=== PATIENT | male | born 1945 | race Caucasian/White ===

== ENCOUNTER 2019-03-31 14:14 | Emergency (ER) | payer OTHER, SELFPAY ==
[2019-03-31 14:20] VITALS: BP 139/82; PULSE 59; RESP 20; TEMP 36.4; O2SAT 99
[2019-03-31] MEDS: MORPHINE 4 MG/ML INJ IV ×3 (14:55→19:39)
[2019-03-31] MEDS: ONDANSETRON 4 MG/2 ML INJ IV ×2 (14:55→16:34)
[2019-03-31 15:18] LABS: Prothrombin Time 11.4 SECONDS (10.1-12.7)
[2019-03-31 15:21] LABS: PTT Partial Thromboplastin Tim 28 SECONDS (26.4-36.2)
[2019-03-31 15:23] LABS: Alanine Aminotransferase 34 IU/L (21-72); Albumin 4.5 g/dL (3.5-5.0); Albumin Globulin Ratio 1.2 (1.0-2.8); Alkaline Phosphatase 137 U/L (38-126); Aspartate Aminotransferase 38 IU/L (17-59); BUN Creatinine Ratio 17.8 (6-22); Bilirubin Total 1.1 mg/dL (0.2-1.3); Blood Urea Nitrogen 16 mg/dL (9-20); Calcium 9.3 mg/dL (8.4-10.2); Carbon Dioxide 22 mmol/L (22-32); Chloride 103 mmol/L (98-107); Estimated Glomerular Filt Rate > 60.0 mL/min (>60); Globulin 3.8 g/dL (1.7-4.1); Glucose 108 mg/dL (80-110); HEMOLYSIS 25 (0-50); Lipase 163 U/L (23-300); Potassium 3.9 mmol/L (3.4-5.1); Sodium 139 mmol/L (137-145); Total Protein 8.3 g/dL (6.3-8.2)
[2019-03-31 15:24] LABS: Add Manual Diff / Slide Review NO; Basophils Absolute Auto 100 /uL (0-100); Basophils Percent Auto 0.5 % (0-2); Eosinophils Absolute Auto 0 /uL (0-450); Hematocrit 46.5 % (41-53); Hemoglobin 15.2 g/dL (13.5-17.5); Lymphocytes Absolute Auto 1000 /uL (1100-4500); Mean Corpuscular HGB Conc 32.7 % (30-36); Mean Corpuscular Hemoglobin 31.1 PG (26-34); Mean Corpuscular Volume 95.2 fL (80-100); Monocytes Absolute Auto 500 /uL (0-900); Monocytes Percent Auto 4.1 % (3-14); Neutrophils Absolute Auto 9500 /uL (1500-7000); Neutrophils Percent Auto 86.4 % (50-75); Platelet Count 192 X10^3/uL (150-400); Red Blood Cell Count 4.89 X10^6/uL (4.5-5.9); Red Cell Distribution Width 14.3 % (11.6-14.8); White Blood Cell Count 11.1 X10^3/uL (4.5-11.0)
[2019-03-31 15:29] LABS: Lactate (Lactic Acid) 2.3 mmol/L (0.7-2.1)
--- NOTE | 2019-03-31 16:20 | DI.US.S_ITS ---
PROCEDURE: US RENAL COMPLETE INDICATIONS: RLQ PAIN, HEMATURIA TECHNIQUE: Real-time scanning was performed of the kidneys and bladder, with image documentation. COMPARISON: None. FINDINGS: Kidneys: Kidneys are normal in size. Right kidney measures 10.7 cm long; left kidney measures 11.7 cm long. Right renal cortical thickness is 1.7 cm; left renal cortical thickness is 1.4 cm. no hydronephrosis. Scattered parenchymal cortical calcifications in the right kidney. No hydronephrosis. Cortical and corticomedullary cysts seen in the left kidney, the largest measuring 3.2 cm containing fine septation. Question of mildly echogenic mass measuring 3.7 x 3.3 x 3.2 cm arising from the upper pole of the left kidney versus left adrenal gland. Bladder: Pre-void bladder volume is 118 mL. Post-void residual is 9 mL. Pre-void images demonstrate no intraluminal masses or stones. On pre-void images, bilateral ureteral jets are noted with color Doppler interrogation. (Of note, ureteral jets may not be detectable in up to 25% of cases due to insufficient differences in specific gravity between ureteral and bladder urine). Miscellaneous: No free pelvic fluid. Visible portion of the prostate gland is within normal limits. No fluid or mass in the right lower quadrant. IMPRESSION: 1. Questionable mildly hyperechoic left upper pole kidney versus left adrenal mass. Renal protocol CT or MRI is recommended. 2. Nonobstructing parenchymal calcifications in the right kidney. 3. Left renal cysts, one minimally complex. 4. Small postvoid residual in the urinary bladder. 5. Etiology of right lower quadrant pain is not identified. Dictated by: Meri Renee M.D. on 03/31/2019 at 18:59 Approved by: Meri Renee M.D. on 03/31/2019 at 19:02
[2019-03-31 16:54] LABS: Bacteria Urine Occasional (0-1); Culture Indicated Urine Specimen Cultured; Mucus Urine 1+ (Negative); RBC Urine 1-5/HPF (0-5/HPF); Squamous Epithelial Cell Urine 0-1 /HPF (0-5/HPF); WBC Urine 1-5/HPF (0-5/HPF)
[2019-03-31 17:12] LABS: Reflexed Lactate in 2 Hours Y
--- NOTE | 2019-03-31 19:31 | DI.CT.S_ITS ---
PROCEDURE: CT ABDOMEN PELVIS WO CON INDICATIONS: rlq pain, hematuria TECHNIQUE: Noncontrast 5 mm thick sections acquired from the diaphragms to the symphysis. 5 mm coronal and sagittal reformats were then performed. For radiation dose reduction, the following was used: automated exposure control, adjustment of mA and/or kV according to patient size. COMPARISON: None. FINDINGS: Image quality: Excellent. ABDOMEN: Lung bases: Lung bases demonstrate bilateral posterior atelectatic changes.. Heart size is normal. Solid organs: Liver is normal in size. Gallbladder is normal. Pancreas is normal in contours. Spleen is normal in size. No adrenal nodules. Nonobstructing 6 mm calcification in the lower pole of the right kidney collecting system. No other right intrarenal calculi. No hydronephrosis in either kidney. There are bilateral cortical cysts, subcentimeter anteriorly in the right upper pole, and it least 4 cortical cysts in the left kidney. The largest measures about 3.3 cm and the left intrapolar region. There is a cyst arising from the anterior left upper pole measuring about 1.9 cm. No definite cortical solid masses, although this was not well assessed without the use of IV contrast. The echogenic structure seen previously by ultrasound may have been inadvertently imaged pancreatic tail. Peritoneum and bowel: Unenhanced bowel loops demonstrate normal wall thickness and caliber. No free fluid or air. The appendix is well-seen and appears normal. Nodes and vessels: No retroperitoneal or mesenteric adenopathy by size criteria. Aorta and inferior vena cava are normal in caliber. Moderate distal abdominal aortic calcification. Miscellaneous: No ventral hernias. PELVIS: Genitourinary: Bladder wall is minimally thickened diffusely. No bladder calculi. Mild prostatomegaly. Miscellaneous: Small fat-containing indirect left inguinal hernia. Bones: No suspicious bony lesions. No vertebral body compression fractures. IMPRESSION: 1. Nonobstructing right lower pole intrarenal calcification measuring 6 mm. 2. Multiple left renal cysts. No definite solid renal mass. Imaging finding ultrasound was likely adjacent pancreatic tail. Confirmation could be completed with contrast enhanced renal protocol MRI. 3. Normal appendix. Etiology of right lower quadrant pain is not evident on this study. 4. Mild urinary bladder wall thickening may be due to under distention versus cystitis. Correlate with urinalysis findings. 5. Small fat-containing left inguinal hernia. Dictated by: Meri Renee M.D. on 03/31/2019 at 21:11 Approved by: Meri Renee M.D. on 03/31/2019 at 21:20
[2019-03-31 20:08] LABS: Lactate (Lactic Acid) 1.1 mmol/L (0.7-2.1)
[2019-03-31 21:10] VITALS: BP 168/78; PULSE 58; O2SAT 97
--- NOTE | 2019-03-31 21:49 | DI.US.S_ITS ---
PROCEDURE: US SCROTUM INDICATIONS: RIGHT TESTICULAR PAIN TECHNIQUE: Real-time scanning was performed of the scrotum and testicles, with image documentation. Color and pulse Doppler interrogation was performed of both testicles. COMPARISON: None. FINDINGS: Right: Testicle is normal in size at 4.6 x 2.4 x 3.2 cm, and homogenous in echotexture. Epididymis is normal in overall size and morphology. No hydrocele or varicoceles. Overlying scrotal skin is normal in thickness. Left: Testicle is normal in size at 5.1 x 2.6 x 2.5 cm, and homogeneous in echotexture. Epididymis is normal in overall size and morphology. No hydrocele or varicoceles. Overlying scrotal skin is normal in thickness. Doppler: Color and pulse Doppler demonstrate normal and symmetric arterial flow in both testicles. IMPRESSION: No source for right testicular pain identified. Note: These findings are concordant with the preliminary interpretation. Dictated by: Damon MARTIN Interpreted: Kunal Meyer MD on 04/01/2019 at 8:28 Approved by: uKnal Meyer M.D. on 04/01/2019 at 11:06
[2019-03-31] MEDS: KETOROLAC 60 MG/2 ML VIAL 30 MG IV (22:00)
--- NOTE | 2019-03-31 22:29 | ED.ABDPAIN ---
HPI - Abdominal Pain <KENDRICK Akhtar - Last Filed: 03/31/19 22:47> General Chief Complaint: Abdominal Pain Stated Complaint: Groin Pain Time Seen by Provider: 03/31/19 14:30 Source: patient and family Mode of arrival: ambulatory Limitations: no limitations History of Present Illness HPI narrative: The patient is a 73-year-old male nonsmoker with history of cardiac disease who presents with a chief complaint of right groin pain described as a inguinal pain radiating down to the right testicle. This started immediately today when he was lifting up something heavy. He states the pain was so bad that he vomited. He denies any chest pain, shortness of breath trauma or injury. he denies any dysuria urgency or frequency. he denies any abdominal pain. denies any previous abdominal surgeries. Related Data Home Medications Medication Instructions Recorded Confirmed alfuzosin 10 mg PO QPM 03/31/19 03/31/19 aspirin 81 mg PO DAILY 03/31/19 03/31/19 atenolol 25 mg PO DAILY 03/31/19 03/31/19 atorvastatin 80 mg PO BEDTIME 03/31/19 03/31/19 cholecalciferol (vitamin D3) 1,000 unit PO DAILY 03/31/19 03/31/19 [Vitamin D3] clopidogrel 75 mg PO DAILY 03/31/19 03/31/19 isosorbide mononitrate 60 mg PO QAM 03/31/19 03/31/19 nitroglycerin [Nitrostat] 0.4 mg SUBLINGUAL Q5-15M PRN 03/31/19 03/31/19 Previous Rx's Medication Instructions Recorded ketorolac 10 mg PO Q6H PRN 2 Days #6 tab 03/31/19 Allergies Allergy/AdvReac Type Severity Reaction Status Date / Time No Known Drug Allergies Allergy Verified 03/31/19 14:26 Review of Systems <KENDRICK Akhtar - Last Filed: 03/31/19 22:47> Review of Systems GENERAL: Denies chills, fatigue, malaise, fever, sweats. HEENT: Denies sinus pain, ear pain, sore throat, difficulty swallowing, dizziness. RESPIRATORY: Denies dyspnea, cough, wheezing, hemoptysis, sputum. CARDIOVASCULAR: Denies chest pain, palpitations, orthopnea, edema, GASTROINTESTINAL: See HPI : See HPI MUSCULOSKELETAL: denies weakness, joint pain, or bony pain SKIN: Denies rash, skin lesions, or other NEUROLOGIC: Denies weakness, headache, numbness, change in speech, confusion, seizures, incoordination. PSYCHIATRIC: No concerning psychosocial issues. 12 point review of systems is negative except for those stated above Exam <Faviola IvyZENAIDA-BC - Last Filed: 03/31/19 22:47> Narrative Exam Narrative: GENERAL: This is a well-nourished, well-developed patient, no obvious distress HEAD: Atraumatic. Normocephalic. No temporal or scalp tenderness. EYES: Pupils equal round and reactive. Extraocular motions intact. No scleral icterus. No injection or drainage. ENT: Nose without bleeding, purulent drainage or septal hematoma. Throat without erythema, tonsillar hypertrophy or exudate. Uvula midline. Airway patent. NECK: Trachea midline. No JVD or lymphadenopathy. Supple, nontender, no meningeal signs. CARDIOVASCULAR: Regular rate and rhythm without murmurs, gallops, or rubs. RESPIRATORY: Clear to auscultation. Breath sounds equal bilaterally. No wheezes, rales, or rhonchi. No cough. No increased respiratory effort. GASTROINTESTINAL: Abdomen soft, , nondistended. No hepato-splenomegaly, or palpable masses. No guarding. active bowel sounds all 4 quadrants. Pain to palpation right lower quadrant. EXTREMITIES: No clubbing, cyanosis, or edema. No joint tenderness, effusion, or edema noted. BACK: Nontender without deformity or crepitance. No flank tenderness. NEURO: AOx3. SKIN: No rash or erythema. : exam performed with Roselyn joy at bedside. Cremasteric reflex intact bilaterally. No obvious swelling. No rash or drainage noted. Initial Vital Signs Initial Vital Signs: Vital Signs Temperature 97.5 F L 03/31/19 14:20 Pulse Rate 59 L 03/31/19 14:20 Respiratory Rate 20 03/31/19 14:20 Blood Pressure 139/82 03/31/19 14:20 Pulse Oximetry 99 03/31/19 14:20 <Casey Poole DO - Last Filed: 03/31/19 22:56> Initial Vital Signs Initial Vital Signs: Vital Signs Temperature 97.5 F L 03/31/19 14:20 Pulse Rate 59 L 04/30/19 14:20 Respiratory Rate 20 03/31/19 14:20 Blood Pressure 139/82 03/31/19 14:20 Pulse Oximetry 99 03/31/19 14:20 Course <ZENAIDA Akhtar-BC - Last Filed: 03/31/19 22:47> Orders Ordered: ED Orders 03/31/19 14:17 EKG-12 Lead Stat 03/31/19 14:30 Comprehensive Metabolic Panel Stat Lipase Stat Partial Thromboplastin Time Stat Prothrombin Time INR Stat 03/31/19 15:05 Complete Blood Count AUTO DIFF Stat Lactate (Lactic Acid) Stat 03/31/19 15:15 Urine Culture Stat Urine Microscopic Stat 03/31/19 16:20 US renal complete Stat 03/31/19 19:31 CT abdomen pelvis wo con Stat 03/31/19 19:50 Lactate (Lactic Acid) Stat 03/31/19 21:49 US scrotum Stat Sodium Chloride (Normal Saline 0.9%) 1,000 mls @ 1,000 mls/hr IV BOLUS PRN PRN Reason: Fluid replacement Discontinued Medications Sodium Chloride (Normal Saline 0.9%) 1,000 mls @ 1,000 mls/hr IV BOLUS ONE Stop: 03/31/19 21:43 Last Admin: 03/31/19 22:55 Dose: Not Given Ketorolac Tromethamine (Toradol) 30 mg IV NOW ONE Stop: 03/31/19 21:51 Last Admin: 03/31/19 22:00 Dose: 30 mg Morphine Sulfate (Morphine) 4 mg IV NOW ONE Stop: 03/31/19 14:42 Last Admin: 03/31/19 14:55 Dose: 4 mg Morphine Sulfate (Morphine) 4 mg IV NOW ONE Stop: 03/31/19 16:01 Last Admin: 03/31/19 16:33 Dose: 4 mg Morphine Sulfate (Morphine) 4 mg IV NOW ONE Stop: 03/31/19 19:40 Last Admin: 03/31/19 19:39 Dose: 4 mg Morphine Sulfate (Morphine Sulfate) 4 mg IV NOW ONE Stop: 03/31/19 19:44 Last Admin: 03/31/19 19:52 Dose: Not Given Ondansetron HCl (Zofran) 4 mg IV NOW ONE Stop: 03/31/19 14:18 Last Admin: 03/31/19 14:55 Dose: 4 mg Ondansetron HCl (Zofran) 4 mg IV NOW ONE Stop: 03/31/19 14:42 Last Admin: 03/31/19 16:34 Dose: 4 mg Vital Signs - 8 hr 03/31/19 21:10 Pulse Rate 58 L Blood Pressure [Left Arm] 168/78 H Pulse Oximetry 97 <Casey Pooel DO - Last Filed: 03/31/19 22:56> Orders Ordered: ED Orders 03/31/19 14:17 EKG-12 Lead Stat 03/31/19 14:30 Comprehensive Metabolic Panel Stat Lipase Stat Partial Thromboplastin Time Stat Prothrombin Time INR Stat 03/31/19 15:05 Complete Blood Count AUTO DIFF Stat Lactate (Lactic Acid) Stat 03/31/19 15:15 Urine Culture Stat Urine Microscopic Stat 03/31/19 16:20 US renal complete Stat 03/31/19 19:31 CT abdomen pelvis wo con Stat 03/31/19 19:50 Lactate (Lactic Acid) Stat 03/31/19 21:49 US scrotum Stat Sodium Chloride (Normal Saline 0.9%) 1,000 mls @ 1,000 mls/hr IV BOLUS PRN PRN Reason: Fluid replacement Discontinued Medications Sodium Chloride (Normal Saline 0.9%) 1,000 mls @ 1,000 mls/hr IV BOLUS ONE Stop: 03/31/19 21:43 Last Admin: 03/31/19 22:55 Dose: Not Given Ketorolac Tromethamine (Toradol) 30 mg IV NOW ONE Stop: 03/31/19 21:51 Last Admin: 03/31/19 22:00 Dose: 30 mg Morphine Sulfate (Morphine) 4 mg IV NOW ONE Stop: 03/31/19 14:42 Last Admin: 03/31/19 14:55 Dose: 4 mg Morphine Sulfate (Morphine) 4 mg IV NOW ONE Stop: 03/31/19 16:01 Last Admin: 03/31/19 16:33 Dose: 4 mg Morphine Sulfate (Morphine) 4 mg IV NOW ONE Stop: 03/31/19 19:40 Last Admin: 03/31/19 19:39 Dose: 4 mg Morphine Sulfate (Morphine Sulfate) 4 mg IV NOW ONE Stop: 03/31/19 19:44 Last Admin: 03/31/19 19:52 Dose: Not Given Ondansetron HCl (Zofran) 4 mg IV NOW ONE Stop: 03/31/19 14:18 Last Admin: 03/31/19 14:55 Dose: 4 mg Ondansetron HCl (Zofran) 4 mg IV NOW ONE Stop: 03/31/19 14:42 Last Admin: 03/31/19 16:34 Dose: 4 mg Vital Signs - 8 hr 03/31/19 21:10 Pulse Rate 58 L Blood Pressure [Left Arm] 168/78 H Pulse Oximetry 97 MDM - Abdominal Pain <ZENAIDA Akhtar- - Last Filed: 03/31/19 22:47> Lab Data Result diagrams: 03/31/19 15:05 03/31/19 14:30 Lab Results 03/31/19 03/31/19 03/31/19 Range/Units 14:30 14:30 15:05 WBC 11.1 H (4.5-11.0) X10^3/uL RBC 4.89 (4.5-5.9) X10^6/uL Hgb 15.2 (13.5-17.5) g/dL Hct 46.5 (41-53) % MCV 95.2 (80-100) fL MCH 31.1 (26-34) PG MCHC 32.7 (30-36) % RDW 14.3 (11.6-14.8) % Plt Count 192 (150-400) X10^3/uL Neut % (Auto) 86.4 H (50-75) % Lymph % (Auto) 9.0 L (25-40) % Rogers % (Auto) 4.1 (3-14) % Eos % (Auto) 0.0 L (2-4) % Baso % (Auto) 0.5 (0-2) % Neut # (Auto) 9500 H (1433-6743) /uL Lymph # (Auto) 1000 L (9048-1719) /uL Rogers # (Auto) 500 (0-900) /uL Eos # (Auto) 0 (0-450) /uL Baso # (Auto) 100 (0-100) /uL PT 11.4 (10.1-12.7) SECONDS INR 1.0 (0.9-1.3) APTT 28 (26.4-36.2) SECONDS Sodium 139 (137-145) mmol/L Potassium 3.9 (3.4-5.1) mmol/L Chloride 103 (98-107) mmol/L Carbon Dioxide 22 (22-32) mmol/L BUN 16 (9-20) mg/dL Creatinine 0.90 (0.66-1.25) mg/dL Estimated GFR > 60.0 (>60) mL/min BUN/Creatinine Ratio 17.8 (6-22) Glucose 108 (80-110) mg/dL Lactate (0.7-2.1) mmol/L Calcium 9.3 (8.4-10.2) mg/dL Total Bilirubin 1.1 (0.2-1.3) mg/dL AST 38 (17-59) IU/L ALT 34 (21-72) IU/L Alkaline Phosphatase 137 H (38-126) U/L Total Protein 8.3 H (6.3-8.2) g/dL Albumin 4.5 (3.5-5.0) g/dL Globulin 3.8 (1.7-4.1) g/dL Albumin/Globulin Ratio 1.2 (1.0-2.8) Lipase 163 (23-300) U/L Urine RBC (0-5/HPF) Urine WBC (0-5/HPF) Ur Squamous Epith Cells (0-5/HPF) Urine Bacteria (None) Urine Mucus (Negative) Ur Culture Indicated? 03/31/19 03/31/19 03/31/19 Range/Units 15:05 15:15 17:53 WBC (4.5-11.0) X10^3/uL RBC (4.5-5.9) X10^6/uL Hgb (13.5-17.5) g/dL Hct (41-53) % MCV (80-100) fL MCH (26-34) PG MCHC (30-36) % RDW (11.6-14.8) % Plt Count (150-400) X10^3/uL Neut % (Auto) (50-75) % Lymph % (Auto) (25-40) % Rogers % (Auto) (3-14) % Eos % (Auto) (2-4) % Baso % (Auto) (0-2) % Neut # (Auto) (8868-4706) /uL Lymph # (Auto) (7505-9844) /uL Rogers # (Auto) (0-900) /uL Eos # (Auto) (0-450) /uL Baso # (Auto) (0-100) /uL PT (10.1-12.7) SECONDS INR (0.9-1.3) APTT (26.4-36.2) SECONDS Sodium (137-145) mmol/L Potassium (3.4-5.1) mmol/L Chloride (98-107) mmol/L Carbon Dioxide (22-32) mmol/L BUN (9-20) mg/dL Creatinine (0.66-1.25) mg/dL Estimated GFR (>60) mL/min BUN/Creatinine Ratio (6-22) Glucose (80-110) mg/dL Lactate 2.3 H 1.0 (0.7-2.1) mmol/L Calcium (8.4-10.2) mg/dL Total Bilirubin (0.2-1.3) mg/dL AST (17-59) IU/L ALT (21-72) IU/L Alkaline Phosphatase (38-126) U/L Total Protein (6.3-8.2) g/dL Albumin (3.5-5.0) g/dL Globulin (1.7-4.1) g/dL Albumin/Globulin Ratio (1.0-2.8) Lipase (23-300) U/L Urine RBC 1-5/hpf (0-5/HPF) Urine WBC 1-5/hpf (0-5/HPF) Ur Squamous Epith Cells 0-1 /hpf (0-5/HPF) Urine Bacteria Occasional (0-1) (None) Urine Mucus 1+ H (Negative) Ur Culture Indicated? Specimen cultured 03/31/19 Range/Units 19:50 WBC (4.5-11.0) X10^3/uL RBC (4.5-5.9) X10^6/uL Hgb (13.5-17.5) g/dL Hct (41-53) % MCV (80-100) fL MCH (26-34) PG MCHC (30-36) % RDW (11.6-14.8) % Plt Count (150-400) X10^3/uL Neut % (Auto) (50-75) % Lymph % (Auto) (25-40) % Rogers % (Auto) (3-14) % Eos % (Auto) (2-4) % Baso % (Auto) (0-2) % Neut # (Auto) (5423-7031) /uL Lymph # (Auto) (8342-6280) /uL Rogers # (Auto) (0-900) /uL Eos # (Auto) (0-450) /uL Baso # (Auto) (0-100) /uL PT (10.1-12.7) SECONDS INR (0.9-1.3) APTT (26.4-36.2) SECONDS Sodium (137-145) mmol/L Potassium (3.4-5.1) mmol/L Chloride (98-107) mmol/L Carbon Dioxide (22-32) mmol/L BUN (9-20) mg/dL Creatinine (0.66-1.25) mg/dL Estimated GFR (>60) mL/min BUN/Creatinine Ratio (6-22) Glucose (80-110) mg/dL Lactate 1.1 (0.7-2.1) mmol/L Calcium (8.4-10.2) mg/dL Total Bilirubin (0.2-1.3) mg/dL AST (17-59) IU/L ALT (21-72) IU/L Alkaline Phosphatase (38-126) U/L Total Protein (6.3-8.2) g/dL Albumin (3.5-5.0) g/dL Globulin (1.7-4.1) g/dL Albumin/Globulin Ratio (1.0-2.8) Lipase (23-300) U/L Urine RBC (0-5/HPF) Urine WBC (0-5/HPF) Ur Squamous Epith Cells (0-5/HPF) Urine Bacteria (None) Urine Mucus (Negative) Ur Culture Indicated? Point of care testing: Urine Dip Bedside Urine Glucose Negative Bedside Urine Bilirubin - Negative Bedside Urine Ketone ++ 40 Urine Specific [place] 1.015 Bedside Urine Occult Blood +/- Bedside Urine pH 7.5 Bedside Urine Protein +/- 15 Bedside Urine Urobilinogen +/- 1mg Bedside Urine Nitrite - Negative Bedside Urine Leukocytes +/- 15 Esterase Imaging Data Renal ultrasound: Radiologist's impression: [address] [address] Ultrasound Report Signed Patient: Miller Yip#: [id number] : 7Acct:[id number] Age/Sex: 73 / MDate of Service: 03/31/19 Loc: ED Accession Number: [id number] Procedure: US renal complete Ordering Provider: Faviola Ivy PROCEDURE: US RENAL COMPLETE INDICATIONS: RLQ PAIN, HEMATURIA TECHNIQUE: Real-time scanning was performed of the kidneys and bladder, with image documentation. COMPARISON: None. FINDINGS: Kidneys: Kidneys are normal in size. Right kidney measures 10.7 cm long; left kidney measures 11.7 cm long. Right renal cortical thickness is 1.7 cm; left renal cortical thickness is 1.4 cm. no hydronephrosis. Scattered parenchymal cortical calcifications in the right kidney. No hydronephrosis. Cortical and corticomedullary cysts seen in the left kidney, the largest measuring 3.2 cm containing fine septation. Question of mildly echogenic mass measuring 3.7 x 3.3 x 3.2 cm arising from the upper pole of the left kidney versus left adrenal gland. Bladder: Pre-void bladder volume is 118 mL. Post-void residual is 9 mL. Pre-void images demonstrate no intraluminal masses or stones. On pre-void images, bilateral ureteral jets are noted with color Doppler interrogation. (Of note, ureteral jets may not be detectable in up to 25% of cases due to insufficient differences in specific gravity between ureteral and bladder urine). Miscellaneous: No free pelvic fluid. Visible portion of the prostate gland is within normal limits. No fluid or mass in the right lower quadrant. IMPRESSION: 1. Questionable mildly hyperechoic left upper pole kidney versus left adrenal mass. Renal protocol CT or MRI is recommended. 2. Nonobstructing parenchymal calcifications in the right kidney. 3. Left renal cysts, one minimally complex. 4. Small postvoid residual in the urinary bladder. 5. Etiology of right lower quadrant pain is not identified. Dictated by: Meri Renee M.D. on 03/31/2019 at 18:59 Approved by: Meri Renee M.D. on 03/31/2019 at 19:02 CT scan - abdomen: Radiologist's impression: Miller Yip 73 M [address] [address] [address] Scan Report Signed Patient: Miller YipMR#: [id number] : 7Acct:[id number] Age/Sex: 73 / MDate of Service: 03/31/19 Loc: ED Accession Number: [id number] Procedure: CT abdomen pelvis wo con Ordering Provider: Faviola Ivy- PROCEDURE: CT ABDOMEN PELVIS WO CON INDICATIONS: rlq pain, hematuria TECHNIQUE: Noncontrast 5 mm thick sections acquired from the diaphragms to the symphysis. 5 mm coronal and sagittal reformats were then performed. For radiation dose reduction, the following was used: automated exposure control, adjustment of mA and/or kV according to patient size. COMPARISON: None. FINDINGS: Image quality: Excellent. ABDOMEN: Lung bases: Lung bases demonstrate bilateral posterior atelectatic changes.. Heart size is normal. Solid organs: Liver is normal in size. Gallbladder is normal. Pancreas is normal in contours. Spleen is normal in size. No adrenal nodules. Nonobstructing 6 mm calcification in the lower pole of the right kidney collecting system. No other right intrarenal calculi. No hydronephrosis in either kidney. There are bilateral cortical cysts, subcentimeter anteriorly in the right upper pole, and it least 4 cortical cysts in the left kidney. The largest measures about 3.3 cm and the left intrapolar region. There is a cyst arising from the anterior left upper pole measuring about 1.9 cm. No definite cortical solid masses, although this was not well assessed without the use of IV contrast. The echogenic structure seen previously by ultrasound may have been inadvertently imaged pancreatic tail. Peritoneum and bowel: Unenhanced bowel loops demonstrate normal wall thickness and caliber. No free fluid or air. The appendix is well-seen and appears normal. Nodes and vessels: No retroperitoneal or mesenteric adenopathy by size criteria. Aorta and inferior vena cava are normal in caliber. Moderate distal abdominal aortic calcification. Miscellaneous: No ventral hernias. PELVIS: Genitourinary: Bladder wall is minimally thickened diffusely. No bladder calculi. Mild prostatomegaly. Miscellaneous: Small fat-containing indirect left inguinal hernia. Bones: No suspicious bony lesions. No vertebral body compression fractures. IMPRESSION: 1. Nonobstructing right lower pole intrarenal calcification measuring 6 mm. 2. Multiple left renal cysts. No definite solid renal mass. Imaging finding ultrasound was likely adjacent pancreatic tail. Confirmation could be completed with contrast enhanced renal protocol MRI. 3. Normal appendix. Etiology of right lower quadrant pain is not evident on this study. 4. Mild urinary bladder wall thickening may be due to under distention versus cystitis. Correlate with urinalysis findings. 5. Small fat-containing left inguinal hernia. Dictated by: Meri Renee M.D. on 03/31/2019 at 21:11 Approved by: Meri Renee M.D. on 03/31/2019 at 21:20 Scrotal ultrasound : Radiologist's impression: Night read: No acute disease MDM Narrative Medical decision making narrative: The patient is a 73-year-old male who presents with chief complaint right lower quadrant pain. although he initially did night any allergies, when he was being prepped for CT he remember that he had a cardiac arrest immediately after contrast dye. Thus I did not obtain a CT with contrast. He had no acute etiology renal ultrasound. I did a CT KUB given the possibility of a renal mass on ultrasound, but this was found to be pancreatic tail on CT. He does have nonobstructing intrarenal calcification that is 6 mm on the right side. I did discuss that this should be asymptomatic at this point time. He has a normal appendix. He does not have any hernias on exam it is noted to have a small fat containing left inguinal hernia. He was found to have some renal cysts, and I spoke at length with the patient and his that he needs to follow up with his primary care provider. Preliminary results from a testicular ultrasound are normal. I discussed at length that he needs to follow up with primary care provider. Discussed coming back to the emergency department for any acute need such as chest pain shortness of breath, concern of heart attack or stroke. The patient does have slight bacteria on urinalysis, but no dysuria urgency or frequency. thus I spoke with the patient his about holding on antibiotics until his urine cultures resulted. they are in accordance. <Casey Poole, - Last Filed: 03/31/19 22:56> Lab Data Lab Results 03/31/19 03/31/19 03/31/19 Range/Units 14:30 14:30 15:05 WBC 11.1 H (4.5-11.0) X10^3/uL RBC 4.89 (4.5-5.9) X10^6/uL Hgb 15.2 (13.5-17.5) g/dL Hct 46.5 (41-53) % MCV 95.2 (80-100) fL MCH 31.1 (26-34) PG MCHC 32.7 (30-36) % RDW 14.3 (11.6-14.8) % Plt Count 192 (150-400) X10^3/uL Neut % (Auto) 86.4 H (50-75) % Lymph % (Auto) 9.0 L (25-40) % Rogers % (Auto) 4.1 (3-14) % Eos % (Auto) 0.0 L (2-4) % Baso % (Auto) 0.5 (0-2) % Neut # (Auto) 9500 H (0984-6271) /uL Lymph # (Auto) 1000 L (1338-6903) /uL Rogers # (Auto) 500 (0-900) /uL Eos # (Auto) 0 (0-450) /uL Baso # (Auto) 100 (0-100) /uL PT 11.4 (10.1-12.7) SECONDS INR 1.0 (0.9-1.3) APTT 28 (26.4-36.2) SECONDS Sodium 139 (137-145) mmol/L Potassium 3.9 (3.4-5.1) mmol/L Chloride 103 (98-107) mmol/L Carbon Dioxide 22 (22-32) mmol/L BUN 16 (9-20) mg/dL Creatinine 0.90 (0.66-1.25) mg/dL Estimated GFR > 60.0 (>60) mL/min BUN/Creatinine Ratio 17.8 (6-22) Glucose 108 (80-110) mg/dL Lactate (0.7-2.1) mmol/L Calcium 9.3 (8.4-10.2) mg/dL Total Bilirubin 1.1 (0.2-1.3) mg/dL AST 38 (17-59) IU/L ALT 34 (21-72) IU/L Alkaline Phosphatase 137 H (38-126) U/L Total Protein 8.3 H (6.3-8.2) g/dL Albumin 4.5 (3.5-5.0) g/dL Globulin 3.8 (1.7-4.1) g/dL Albumin/Globulin Ratio 1.2 (1.0-2.8) Lipase 163 (23-300) U/L Urine RBC (0-5/HPF) Urine WBC (0-5/HPF) Ur Squamous Epith Cells (0-5/HPF) Urine Bacteria (None) Urine Mucus (Negative) Ur Culture Indicated? 03/31/19 03/31/19 03/31/19 Range/Units 15:05 15:15 17:53 WBC (4.5-11.0) X10^3/uL RBC (4.5-5.9) X10^6/uL Hgb (13.5-17.5) g/dL Hct (41-53) % MCV (80-100) fL MCH (26-34) PG MCHC (30-36) % RDW (11.6-14.8) % Plt Count (150-400) X10^3/uL Neut % (Auto) (50-75) % Lymph % (Auto) (25-40) % Rogers % (Auto) (3-14) % Eos % (Auto) (2-4) % Baso % (Auto) (0-2) % Neut # (Auto) (2634-5022) /uL Lymph # (Auto) (4949-4288) /uL Rogers # (Auto) (0-900) /uL Eos # (Auto) (0-450) /uL Baso # (Auto) (0-100) /uL PT (10.1-12.7) SECONDS INR (0.9-1.3) APTT (26.4-36.2) SECONDS Sodium (137-145) mmol/L Potassium (3.4-5.1) mmol/L Chloride (98-107) mmol/L Carbon Dioxide (22-32) mmol/L BUN (9-20) mg/dL Creatinine (0.66-1.25) mg/dL Estimated GFR (>60) mL/min BUN/Creatinine Ratio (6-22) Glucose (80-110) mg/dL Lactate 2.3 H 1.0 (0.7-2.1) mmol/L Calcium (8.4-10.2) mg/dL Total Bilirubin (0.2-1.3) mg/dL AST (17-59) IU/L ALT (21-72) IU/L Alkaline Phosphatase (38-126) U/L Total Protein (6.3-8.2) g/dL Albumin (3.5-5.0) g/dL Globulin (1.7-4.1) g/dL Albumin/Globulin Ratio (1.0-2.8) Lipase (23-300) U/L Urine RBC 1-5/hpf (0-5/HPF) Urine WBC 1-5/hpf (0-5/HPF) Ur Squamous Epith Cells 0-1 /hpf (0-5/HPF) Urine Bacteria Occasional (0-1) (None) Urine Mucus 1+ H (Negative) Ur Culture Indicated? Specimen cultured 03/31/19 Range/Units 19:50 WBC (4.5-11.0) X10^3/uL RBC (4.5-5.9) X10^6/uL Hgb (13.5-17.5) g/dL Hct (41-53) % MCV (80-100) fL MCH (26-34) PG MCHC (30-36) % RDW (11.6-14.8) % Plt Count (150-400) X10^3/uL Neut % (Auto) (50-75) % Lymph % (Auto) (25-40) % Rogers % (Auto) (3-14) % Eos % (Auto) (2-4) % Baso % (Auto) (0-2) % Neut # (Auto) (4341-7249) /uL Lymph # (Auto) (7031-7072) /uL Rogers # (Auto) (0-900) /uL Eos # (Auto) (0-450) /uL Baso # (Auto) (0-100) /uL PT (10.1-12.7) SECONDS INR (0.9-1.3) APTT (26.4-36.2) SECONDS Sodium (137-145) mmol/L Potassium (3.4-5.1) mmol/L Chloride (98-107) mmol/L Carbon Dioxide (22-32) mmol/L BUN (9-20) mg/dL Creatinine (0.66-1.25) mg/dL Estimated GFR (>60) mL/min BUN/Creatinine Ratio (6-22) Glucose (80-110) mg/dL Lactate 1.1 (0.7-2.1) mmol/L Calcium (8.4-10.2) mg/dL Total Bilirubin (0.2-1.3) mg/dL AST (17-59) IU/L ALT (21-72) IU/L Alkaline Phosphatase (38-126) U/L Total Protein (6.3-8.2) g/dL Albumin (3.5-5.0) g/dL Globulin (1.7-4.1) g/dL Albumin/Globulin Ratio (1.0-2.8) Lipase (23-300) U/L Urine RBC (0-5/HPF) Urine WBC (0-5/HPF) Ur Squamous Epith Cells (0-5/HPF) Urine Bacteria (None) Urine Mucus (Negative) Ur Culture Indicated? Point of care testing: Urine Dip Bedside Urine Glucose Negative Bedside Urine Bilirubin - Negative Bedside Urine Ketone ++ 40 Urine Specific [place] 1.015 Bedside Urine Occult Blood +/- Bedside Urine pH 7.5 Bedside Urine Protein +/- 15 Bedside Urine Urobilinogen +/- 1mg Bedside Urine Nitrite - Negative Bedside Urine Leukocytes +/- 15 Esterase Discharge Plan Departure Patient Disposition: Home Clinical Impression: Right inguinal pain Instructions: DI for Abdominal Pain-Adult, DI for Groin Strain Activity Restrictions/Additional Instructions: Your renal ultrasound abdominal CT and preliminary results of testicular ultrasound do not have any direct cause of your right lower quadrant pain. We are sending off a urine culture to see if your urine grows anything. He will get a phone call this comes back positive. I have given you a prescription of Toradol. Do not combine this with ibuprofen Aleve or any other NSAIDs. Please follow up with primary care provider soon as possible. Please come back to emergency department for any acute concerns such as chest pain or shortness of breath. Prescriptions: New ketorolac 10 mg tablet 10 mg PO Q6H PRN (Reason: pain) 2 Days Qty: 6 RF: 0 No Action atorvastatin 80 mg Tablet 80 mg PO BEDTIME RF: 0 atenolol 25 mg Tablet 25 mg PO DAILY RF: 0 clopidogrel 75 mg Tablet 75 mg PO DAILY RF: 0 aspirin 81 mg Tablet,Delayed Release (Dr/Ec) 81 mg PO DAILY RF: 0 isosorbide mononitrate 60 mg Tablet Extended Release 24 Hr 60 mg PO QAM RF: 0 nitroglycerin [Nitrostat] 0.4 mg Tablet, Sublingual 0.4 mg SUBLINGUAL Q5-15M PRN (Reason: Chest Pain) RF: 0 cholecalciferol (vitamin D3) [Vitamin D3] 1,000 unit Capsule 1,000 unit PO DAILY RF: 0 alfuzosin 10 mg Tablet Extended Release 24 Hr 10 mg PO QPM RF: 0 Referrals: Hector Watts MD [Non-Staff] - <Casey Poole DO - Last Filed: 03/31/19 22:56> Cosign ED Attending Mary Carmenature Attestation: I was available for consultation during this patient's emergency department encounter
--- NOTE | 2019-03-31 22:37 | ED_ITS ---
HPI - Abdominal Pain <KENDRICK Akhtar - Last Filed: 03/31/19 22:47> General Chief Complaint: Abdominal Pain Stated Complaint: Groin Pain Time Seen by Provider: 03/31/19 14:30 Source: patient and family Mode of arrival: ambulatory Limitations: no limitations History of Present Illness HPI narrative: The patient is a 73-year-old male nonsmoker with history of cardiac disease who presents with a chief complaint of right groin pain described as a inguinal pain radiating down to the right testicle. This started immediately today when he was lifting up something heavy. He states the pain was so bad that he vomited. He denies any chest pain, shortness of breath trauma or injury. he denies any dysuria urgency or frequency. he denies any abdominal pain. denies any previous abdominal surgeries. Related Data Home Medications Medication Instructions Recorded Confirmed alfuzosin 10 mg PO QPM 03/31/19 03/31/19 aspirin 81 mg PO DAILY 03/31/19 03/31/19 atenolol 25 mg PO DAILY 03/31/19 03/31/19 atorvastatin 80 mg PO BEDTIME 03/31/19 03/31/19 cholecalciferol (vitamin D3) 1,000 unit PO DAILY 03/31/19 03/31/19 [Vitamin D3] clopidogrel 75 mg PO DAILY 03/31/19 03/31/19 isosorbide mononitrate 60 mg PO QAM 03/31/19 03/31/19 nitroglycerin [Nitrostat] 0.4 mg SUBLINGUAL Q5-15M PRN 03/31/19 03/31/19 Previous Rx's Medication Instructions Recorded ketorolac 10 mg PO Q6H PRN 2 Days #6 tab 03/31/19 Allergies Allergy/AdvReac Type Severity Reaction Status Date / Time No Known Drug Allergies Allergy Verified 03/31/19 14:26 Review of Systems <KENDRICK Akhtar - Last Filed: 03/31/19 22:47> Review of Systems GENERAL: Denies chills, fatigue, malaise, fever, sweats. HEENT: Denies sinus pain, ear pain, sore throat, difficulty swallowing, dizziness. RESPIRATORY: Denies dyspnea, cough, wheezing, hemoptysis, sputum. CARDIOVASCULAR: Denies chest pain, palpitations, orthopnea, edema, GASTROINTESTINAL: See HPI : See HPI MUSCULOSKELETAL: denies weakness, joint pain, or bony pain SKIN: Denies rash, skin lesions, or other NEUROLOGIC: Denies weakness, headache, numbness, change in speech, confusion, seizures, incoordination. PSYCHIATRIC: No concerning psychosocial issues. 12 point review of systems is negative except for those stated above Exam <Faviola IvyZENAIDA-BC - Last Filed: 03/31/19 22:47> Narrative Exam Narrative: GENERAL: This is a well-nourished, well-developed patient, no obvious distress HEAD: Atraumatic. Normocephalic. No temporal or scalp tenderness. EYES: Pupils equal round and reactive. Extraocular motions intact. No scleral icterus. No injection or drainage. ENT: Nose without bleeding, purulent drainage or septal hematoma. Throat without erythema, tonsillar hypertrophy or exudate. Uvula midline. Airway patent. NECK: Trachea midline. No JVD or lymphadenopathy. Supple, nontender, no meningeal signs. CARDIOVASCULAR: Regular rate and rhythm without murmurs, gallops, or rubs. RESPIRATORY: Clear to auscultation. Breath sounds equal bilaterally. No wheezes, rales, or rhonchi. No cough. No increased respiratory effort. GASTROINTESTINAL: Abdomen soft, , nondistended. No hepato-splenomegaly, or palpable masses. No guarding. active bowel sounds all 4 quadrants. Pain to palpation right lower quadrant. EXTREMITIES: No clubbing, cyanosis, or edema. No joint tenderness, effusion, or edema noted. BACK: Nontender without deformity or crepitance. No flank tenderness. NEURO: AOx3. SKIN: No rash or erythema. : exam performed with Roselyn joy at bedside. Cremasteric reflex intact bilaterally. No obvious swelling. No rash or drainage noted. Initial Vital Signs Initial Vital Signs: Vital Signs Temperature 97.5 F L 03/31/19 14:20 Pulse Rate 59 L 03/31/19 14:20 Respiratory Rate 20 03/31/19 14:20 Blood Pressure 139/82 03/31/19 14:20 Pulse Oximetry 99 03/31/19 14:20 <Casey Poole DO - Last Filed: 03/31/19 22:56> Initial Vital Signs Initial Vital Signs: Vital Signs Temperature 97.5 F L 03/31/19 14:20 Pulse Rate 59 L 04/30/19 14:20 Respiratory Rate 20 03/31/19 14:20 Blood Pressure 139/82 03/31/19 14:20 Pulse Oximetry 99 03/31/19 14:20 Course <ZENAIDA Akhtar-BC - Last Filed: 03/31/19 22:47> Orders Ordered: ED Orders 03/31/19 14:17 EKG-12 Lead Stat 03/31/19 14:30 Comprehensive Metabolic Panel Stat Lipase Stat Partial Thromboplastin Time Stat Prothrombin Time INR Stat 03/31/19 15:05 Complete Blood Count AUTO DIFF Stat Lactate (Lactic Acid) Stat 03/31/19 15:15 Urine Culture Stat Urine Microscopic Stat 03/31/19 16:20 US renal complete Stat 03/31/19 19:31 CT abdomen pelvis wo con Stat 03/31/19 19:50 Lactate (Lactic Acid) Stat 03/31/19 21:49 US scrotum Stat Sodium Chloride (Normal Saline 0.9%) 1,000 mls @ 1,000 mls/hr IV BOLUS PRN PRN Reason: Fluid replacement Discontinued Medications Sodium Chloride (Normal Saline 0.9%) 1,000 mls @ 1,000 mls/hr IV BOLUS ONE Stop: 03/31/19 21:43 Last Admin: 03/31/19 22:55 Dose: Not Given Ketorolac Tromethamine (Toradol) 30 mg IV NOW ONE Stop: 03/31/19 21:51 Last Admin: 03/31/19 22:00 Dose: 30 mg Morphine Sulfate (Morphine) 4 mg IV NOW ONE Stop: 03/31/19 14:42 Last Admin: 03/31/19 14:55 Dose: 4 mg Morphine Sulfate (Morphine) 4 mg IV NOW ONE Stop: 03/31/19 16:01 Last Admin: 03/31/19 16:33 Dose: 4 mg Morphine Sulfate (Morphine) 4 mg IV NOW ONE Stop: 03/31/19 19:40 Last Admin: 03/31/19 19:39 Dose: 4 mg Morphine Sulfate (Morphine Sulfate) 4 mg IV NOW ONE Stop: 03/31/19 19:44 Last Admin: 03/31/19 19:52 Dose: Not Given Ondansetron HCl (Zofran) 4 mg IV NOW ONE Stop: 03/31/19 14:18 Last Admin: 03/31/19 14:55 Dose: 4 mg Ondansetron HCl (Zofran) 4 mg IV NOW ONE Stop: 03/31/19 14:42 Last Admin: 03/31/19 16:34 Dose: 4 mg Vital Signs - 8 hr 03/31/19 21:10 Pulse Rate 58 L Blood Pressure [Left Arm] 168/78 H Pulse Oximetry 97 <Casey Poole DO - Last Filed: 03/31/19 22:56> Orders Ordered: ED Orders 03/31/19 14:17 EKG-12 Lead Stat 03/31/19 14:30 Comprehensive Metabolic Panel Stat Lipase Stat Partial Thromboplastin Time Stat Prothrombin Time INR Stat 03/31/19 15:05 Complete Blood Count AUTO DIFF Stat Lactate (Lactic Acid) Stat 03/31/19 15:15 Urine Culture Stat Urine Microscopic Stat 03/31/19 16:20 US renal complete Stat 03/31/19 19:31 CT abdomen pelvis wo con Stat 03/31/19 19:50 Lactate (Lactic Acid) Stat 03/31/19 21:49 US scrotum Stat Sodium Chloride (Normal Saline 0.9%) 1,000 mls @ 1,000 mls/hr IV BOLUS PRN PRN Reason: Fluid replacement Discontinued Medications Sodium Chloride (Normal Saline 0.9%) 1,000 mls @ 1,000 mls/hr IV BOLUS ONE Stop: 03/31/19 21:43 Last Admin: 03/31/19 22:55 Dose: Not Given Ketorolac Tromethamine (Toradol) 30 mg IV NOW ONE Stop: 03/31/19 21:51 Last Admin: 03/31/19 22:00 Dose: 30 mg Morphine Sulfate (Morphine) 4 mg IV NOW ONE Stop: 03/31/19 14:42 Last Admin: 03/31/19 14:55 Dose: 4 mg Morphine Sulfate (Morphine) 4 mg IV NOW ONE Stop: 03/31/19 16:01 Last Admin: 03/31/19 16:33 Dose: 4 mg Morphine Sulfate (Morphine) 4 mg IV NOW ONE Stop: 03/31/19 19:40 Last Admin: 03/31/19 19:39 Dose: 4 mg Morphine Sulfate (Morphine Sulfate) 4 mg IV NOW ONE Stop: 03/31/19 19:44 Last Admin: 03/31/19 19:52 Dose: Not Given Ondansetron HCl (Zofran) 4 mg IV NOW ONE Stop: 03/31/19 14:18 Last Admin: 03/31/19 14:55 Dose: 4 mg Ondansetron HCl (Zofran) 4 mg IV NOW ONE Stop: 03/31/19 14:42 Last Admin: 03/31/19 16:34 Dose: 4 mg Vital Signs - 8 hr 03/31/19 21:10 Pulse Rate 58 L Blood Pressure [Left Arm] 168/78 H Pulse Oximetry 97 MDM - Abdominal Pain <ZENAIDA Akhtar- - Last Filed: 03/31/19 22:47> Lab Data Result diagrams: 03/31/19 15:05 03/31/19 14:30 Lab Results 03/31/19 03/31/19 03/31/19 Range/Units 14:30 14:30 15:05 WBC 11.1 H (4.5-11.0) X10^3/uL RBC 4.89 (4.5-5.9) X10^6/uL Hgb 15.2 (13.5-17.5) g/dL Hct 46.5 (41-53) % MCV 95.2 (80-100) fL MCH 31.1 (26-34) PG MCHC 32.7 (30-36) % RDW 14.3 (11.6-14.8) % Plt Count 192 (150-400) X10^3/uL Neut % (Auto) 86.4 H (50-75) % Lymph % (Auto) 9.0 L (25-40) % [place] % (Auto) 4.1 (3-14) % Eos % (Auto) 0.0 L (2-4) % Baso % (Auto) 0.5 (0-2) % Neut # (Auto) 9500 H (4265-6597) /uL Lymph # (Auto) 1000 L (0148-3503) /uL [place] # (Auto) 500 (0-900) /uL Eos # (Auto) 0 (0-450) /uL Baso # (Auto) 100 (0-100) /uL PT 11.4 (10.1-12.7) SECONDS INR 1.0 (0.9-1.3) APTT 28 (26.4-36.2) SECONDS Sodium 139 (137-145) mmol/L Potassium 3.9 (3.4-5.1) mmol/L Chloride 103 (98-107) mmol/L Carbon Dioxide 22 (22-32) mmol/L BUN 16 (9-20) mg/dL Creatinine 0.90 (0.66-1.25) mg/dL Estimated GFR > 60.0 (>60) mL/min BUN/Creatinine Ratio 17.8 (6-22) Glucose 108 (80-110) mg/dL Lactate (0.7-2.1) mmol/L Calcium 9.3 (8.4-10.2) mg/dL Total Bilirubin 1.1 (0.2-1.3) mg/dL AST 38 (17-59) IU/L ALT 34 (21-72) IU/L Alkaline Phosphatase 137 H (38-126) U/L Total Protein 8.3 H (6.3-8.2) g/dL Albumin 4.5 (3.5-5.0) g/dL Globulin 3.8 (1.7-4.1) g/dL Albumin/Globulin Ratio 1.2 (1.0-2.8) Lipase 163 (23-300) U/L Urine RBC (0-5/HPF) Urine WBC (0-5/HPF) Ur Squamous Epith Cells (0-5/HPF) Urine Bacteria (None) Urine Mucus (Negative) Ur Culture Indicated? 03/31/19 03/31/19 03/31/19 Range/Units 15:05 15:15 17:53 WBC (4.5-11.0) X10^3/uL RBC (4.5-5.9) X10^6/uL Hgb (13.5-17.5) g/dL Hct (41-53) % MCV (80-100) fL MCH (26-34) PG MCHC (30-36) % RDW (11.6-14.8) % Plt Count (150-400) X10^3/uL Neut % (Auto) (50-75) % Lymph % (Auto) (25-40) % [place] % (Auto) (3-14) % Eos % (Auto) (2-4) % Baso % (Auto) (0-2) % Neut # (Auto) (7149-6866) /uL Lymph # (Auto) (7540-5264) /uL [place] # (Auto) (0-900) /uL Eos # (Auto) (0-450) /uL Baso # (Auto) (0-100) /uL PT (10.1-12.7) SECONDS INR (0.9-1.3) APTT (26.4-36.2) SECONDS Sodium (137-145) mmol/L Potassium (3.4-5.1) mmol/L Chloride (98-107) mmol/L Carbon Dioxide (22-32) mmol/L BUN (9-20) mg/dL Creatinine (0.66-1.25) mg/dL Estimated GFR (>60) mL/min BUN/Creatinine Ratio (6-22) Glucose (80-110) mg/dL Lactate 2.3 H 1.0 (0.7-2.1) mmol/L Calcium (8.4-10.2) mg/dL Total Bilirubin (0.2-1.3) mg/dL AST (17-59) IU/L ALT (21-72) IU/L Alkaline Phosphatase (38-126) U/L Total Protein (6.3-8.2) g/dL Albumin (3.5-5.0) g/dL Globulin (1.7-4.1) g/dL Albumin/Globulin Ratio (1.0-2.8) Lipase (23-300) U/L Urine RBC 1-5/hpf (0-5/HPF) Urine WBC 1-5/hpf (0-5/HPF) Ur Squamous Epith Cells 0-1 /hpf (0-5/HPF) Urine Bacteria Occasional (0-1) (None) Urine Mucus 1+ H (Negative) Ur Culture Indicated? Specimen cultured 03/31/19 Range/Units 19:50 WBC (4.5-11.0) X10^3/uL RBC (4.5-5.9) X10^6/uL Hgb (13.5-17.5) g/dL Hct (41-53) % MCV (80-100) fL MCH (26-34) PG MCHC (30-36) % RDW (11.6-14.8) % Plt Count (150-400) X10^3/uL Neut % (Auto) (50-75) % Lymph % (Auto) (25-40) % [place] % (Auto) (3-14) % Eos % (Auto) (2-4) % Baso % (Auto) (0-2) % Neut # (Auto) (7625-4617) /uL Lymph # (Auto) (1280-1950) /uL [place] # (Auto) (0-900) /uL Eos # (Auto) (0-450) /uL Baso # (Auto) (0-100) /uL PT (10.1-12.7) SECONDS INR (0.9-1.3) APTT (26.4-36.2) SECONDS Sodium (137-145) mmol/L Potassium (3.4-5.1) mmol/L Chloride (98-107) mmol/L Carbon Dioxide (22-32) mmol/L BUN (9-20) mg/dL Creatinine (0.66-1.25) mg/dL Estimated GFR (>60) mL/min BUN/Creatinine Ratio (6-22) Glucose (80-110) mg/dL Lactate 1.1 (0.7-2.1) mmol/L Calcium (8.4-10.2) mg/dL Total Bilirubin (0.2-1.3) mg/dL AST (17-59) IU/L ALT (21-72) IU/L Alkaline Phosphatase (38-126) U/L Total Protein (6.3-8.2) g/dL Albumin (3.5-5.0) g/dL Globulin (1.7-4.1) g/dL Albumin/Globulin Ratio (1.0-2.8) Lipase (23-300) U/L Urine RBC (0-5/HPF) Urine WBC (0-5/HPF) Ur Squamous Epith Cells (0-5/HPF) Urine Bacteria (None) Urine Mucus (Negative) Ur Culture Indicated? Point of care testing: Urine Dip Bedside Urine Glucose Negative Bedside Urine Bilirubin - Negative Bedside Urine Ketone ++ 40 Urine Specific [place] 1.015 Bedside Urine Occult Blood +/- Bedside Urine pH 7.5 Bedside Urine Protein +/- 15 Bedside Urine Urobilinogen +/- 1mg Bedside Urine Nitrite - Negative Bedside Urine Leukocytes +/- 15 Esterase Imaging Data Renal ultrasound: Radiologist's impression: [address] [address] Ultrasound Report Signed Patient: Miller Yip#: [id number] : 7Acct:[id number] Age/Sex: 73 / MDate of Service: 03/31/19 Loc: ED Accession Number: [id number] Procedure: US renal complete Ordering Provider: Faviola Ivy PROCEDURE: US RENAL COMPLETE INDICATIONS: RLQ PAIN, HEMATURIA TECHNIQUE: Real-time scanning was performed of the kidneys and bladder, with image documentation. COMPARISON: None. FINDINGS: Kidneys: Kidneys are normal in size. Right kidney measures 10.7 cm long; left kidney measures 11.7 cm long. Right renal cortical thickness is 1.7 cm; left renal cortical thickness is 1.4 cm. no hydronephrosis. Scattered parenchymal cortical calcifications in the right kidney. No hydronephrosis. Cortical and corticomedullary cysts seen in the left kidney, the largest measuring 3.2 cm containing fine septation. Question of mildly echogenic mass measuring 3.7 x 3.3 x 3.2 cm arising from the upper pole of the left kidney versus left adrenal gland. Bladder: Pre-void bladder volume is 118 mL. Post-void residual is 9 mL. Pre- void images demonstrate no intraluminal masses or stones. On pre-void images, bilateral ureteral jets are noted with color Doppler interrogation. (Of note, ureteral jets may not be detectable in up to 25% of cases due to insufficient differences in specific gravity between ureteral and bladder urine). Miscellaneous: No free pelvic fluid. Visible portion of the prostate gland is within normal limits. No fluid or mass in the right lower quadrant. IMPRESSION: 1. Questionable mildly hyperechoic left upper pole kidney versus left adrenal mass. Renal protocol CT or MRI is recommended. 2. Nonobstructing parenchymal calcifications in the right kidney. 3. Left renal cysts, one minimally complex. 4. Small postvoid residual in the urinary bladder. 5. Etiology of right lower quadrant pain is not identified. Dictated by: Meri Renee M.D. on 03/31/2019 at 18:59 Approved by: Meri Renee M.D. on 03/31/2019 at 19:02 CT scan - abdomen: Radiologist's impression: Miller Yip 73 M [address] [address] [address] Scan Report Signed Patient: Miller YipMR#: [id number] : 7Acct:[id number] Age/Sex: 73 / MDate of Service: 03/31/19 Loc: ED Accession Number: [id number] Procedure: CT abdomen pelvis wo con Ordering Provider: Faviola Ivy- PROCEDURE: CT ABDOMEN PELVIS WO CON INDICATIONS: rlq pain, hematuria TECHNIQUE: Noncontrast 5 mm thick sections acquired from the diaphragms to the symphysis. 5 mm coronal and sagittal reformats were then performed. For radiation dose reduction, the following was used: automated exposure control, adjustment of mA and/or kV according to patient size. COMPARISON: None. FINDINGS: Image quality: Excellent. ABDOMEN: Lung bases: Lung bases demonstrate bilateral posterior atelectatic changes.. Heart size is normal. Solid organs: Liver is normal in size. Gallbladder is normal. Pancreas is normal in contours. Spleen is normal in size. No adrenal nodules. Nonobstructing 6 mm calcification in the lower pole of the right kidney collecting system. No other right intrarenal calculi. No hydronephrosis in either kidney. There are bilateral cortical cysts, subcentimeter anteriorly in the right upper pole, and it least 4 cortical cysts in the left kidney. The largest measures about 3.3 cm and the left intrapolar region. There is a cyst arising from the anterior left upper pole measuring about 1.9 cm. No definite cortical solid masses, although this was not well assessed without the use of IV contrast. The echogenic structure seen previously by ultrasound may have been inadvertently imaged pancreatic tail. Peritoneum and bowel: Unenhanced bowel loops demonstrate normal wall thickness and caliber. No free fluid or air. The appendix is well-seen and appears normal. Nodes and vessels: No retroperitoneal or mesenteric adenopathy by size criteria. Aorta and inferior vena cava are normal in caliber. Moderate distal abdominal aortic calcification. Miscellaneous: No ventral hernias. PELVIS: Genitourinary: Bladder wall is minimally thickened diffusely. No bladder calculi. Mild prostatomegaly. Miscellaneous: Small fat-containing indirect left inguinal hernia. Bones: No suspicious bony lesions. No vertebral body compression fractures. IMPRESSION: 1. Nonobstructing right lower pole intrarenal calcification measuring 6 mm. 2. Multiple left renal cysts. No definite solid renal mass. Imaging finding ultrasound was likely adjacent pancreatic tail. Confirmation could be completed with contrast enhanced renal protocol MRI. 3. Normal appendix. Etiology of right lower quadrant pain is not evident on this study. 4. Mild urinary bladder wall thickening may be due to under distention versus cystitis. Correlate with urinalysis findings. 5. Small fat-containing left inguinal hernia. Dictated by: Meri Renee M.D. on 03/31/2019 at 21:11 Approved by: Meri Renee M.D. on 03/31/2019 at 21:20 Scrotal ultrasound : Radiologist's impression: Night read: No acute disease MDM Narrative Medical decision making narrative: The patient is a 73-year-old male who presents with chief complaint right lower quadrant pain. although he initially did night any allergies, when he was being prepped for CT he remember that he had a cardiac arrest immediately after contrast dye. Thus I did not obtain a CT with contrast. He had no acute etiology renal ultrasound. I did a CT KUB given the possibility of a renal mass on ultrasound, but this was found to be pancreatic tail on CT. He does have nonobstructing intrarenal calcification that is 6 mm on the right side. I did discuss that this should be asymptomatic at this point time. He has a normal appendix. He does not have any hernias on exam it is noted to have a small fat containing left inguinal hernia. He was found to have some renal cysts, and I spoke at length with the patient and his w samantha that he needs to follow up with his primary care provider. Preliminary results from a testicular ultrasound are normal. I discussed at length that he needs to follow up with primary care provider. Discussed coming back to the emergency department for any acute need such as chest pain shortness of breath, concern of heart attack or stroke. The patient does have slight bacteria on urinalysis, but no dysuria urgency or frequency. thus I spoke with the patient his about holding on antibiotics until his urine cultures resulted. they are in accordance. <Casey Poole, DO - Last Filed: 03/31/19 22:56> Lab Data Lab Results 03/31/19 03/31/19 03/31/19 Range/Units 14:30 14:30 15:05 WBC 11.1 H (4.5-11.0) X10^3/uL RBC 4.89 (4.5-5.9) X10^6/uL Hgb 15.2 (13.5-17.5) g/dL Hct 46.5 (41-53) % MCV 95.2 (80-100) fL MCH 31.1 (26-34) PG MCHC 32.7 (30-36) % RDW 14.3 (11.6-14.8) % Plt Count 192 (150-400) X10^3/uL Neut % (Auto) 86.4 H (50-75) % Lymph % (Auto) 9.0 L (25-40) % [place] % (Auto) 4.1 (3-14) % Eos % (Auto) 0.0 L (2-4) % Baso % (Auto) 0.5 (0-2) % Neut # (Auto) 9500 H (3224-0359) /uL Lymph # (Auto) 1000 L (0222-5432) /uL [place] # (Auto) 500 (0-900) /uL Eos # (Auto) 0 (0-450) /uL Baso # (Auto) 100 (0-100) /uL PT 11.4 (10.1-12.7) SECONDS INR 1.0 (0.9-1.3) APTT 28 (26.4-36.2) SECONDS Sodium 139 (137-145) mmol/L Potassium 3.9 (3.4-5.1) mmol/L Chloride 103 (98-107) mmol/L Carbon Dioxide 22 (22-32) mmol/L BUN 16 (9-20) mg/dL Creatinine 0.90 (0.66-1.25) mg/dL Estimated GFR > 60.0 (>60) mL/min BUN/Creatinine Ratio 17.8 (6-22) Glucose 108 (80-110) mg/dL Lactate (0.7-2.1) mmol/L Calcium 9.3 (8.4-10.2) mg/dL Total Bilirubin 1.1 (0.2-1.3) mg/dL AST 38 (17-59) IU/L ALT 34 (21-72) IU/L Alkaline Phosphatase 137 H (38-126) U/L Total Protein 8.3 H (6.3-8.2) g/dL Albumin 4.5 (3.5-5.0) g/dL Globulin 3.8 (1.7-4.1) g/dL Albumin/Globulin Ratio 1.2 (1.0-2.8) Lipase 163 (23-300) U/L Urine RBC (0-5/HPF) Urine WBC (0-5/HPF) Ur Squamous Epith Cells (0-5/HPF) Urine Bacteria (None) Urine Mucus (Negative) Ur Culture Indicated? 03/31/19 03/31/19 03/31/19 Range/Units 15:05 15:15 17:53 WBC (4.5-11.0) X10^3/uL RBC (4.5-5.9) X10^6/uL Hgb (13.5-17.5) g/dL Hct (41-53) % MCV (80-100) fL MCH (26-34) PG MCHC (30-36) % RDW (11.6-14.8) % Plt Count (150-400) X10^3/uL Neut % (Auto) (50-75) % Lymph % (Auto) (25-40) % [place] % (Auto) (3-14) % Eos % (Auto) (2-4) % Baso % (Auto) (0-2) % Neut # (Auto) (8415-3074) /uL Lymph # (Auto) (0942-6051) /uL [place] # (Auto) (0-900) /uL Eos # (Auto) (0-450) /uL Baso # (Auto) (0-100) /uL PT (10.1-12.7) SECONDS INR (0.9-1.3) APTT (26.4-36.2) SECONDS Sodium (137-145) mmol/L Potassium (3.4-5.1) mmol/L Chloride (98-107) mmol/L Carbon Dioxide (22-32) mmol/L BUN (9-20) mg/dL Creatinine (0.66-1.25) mg/dL Estimated GFR (>60) mL/min BUN/Creatinine Ratio (6-22) Glucose (80-110) mg/dL Lactate 2.3 H 1.0 (0.7-2.1) mmol/L Calcium (8.4-10.2) mg/dL Total Bilirubin (0.2-1.3) mg/dL AST (17-59) IU/L ALT (21-72) IU/L Alkaline Phosphatase (38-126) U/L Total Protein (6.3-8.2) g/dL Albumin (3.5-5.0) g/dL Globulin (1.7-4.1) g/dL Albumin/Globulin Ratio (1.0-2.8) Lipase (23-300) U/L Urine RBC 1-5/hpf (0-5/HPF) Urine WBC 1-5/hpf (0-5/HPF) Ur Squamous Epith Cells 0-1 /hpf (0-5/HPF) Urine Bacteria Occasional (0-1) (None) Urine Mucus 1+ H (Negative) Ur Culture Indicated? Specimen cultured 03/31/19 Range/Units 19:50 WBC (4.5-11.0) X10^3/uL RBC (4.5-5.9) X10^6/uL Hgb (13.5-17.5) g/dL Hct (41-53) % MCV (80-100) fL MCH (26-34) PG MCHC (30-36) % RDW (11.6-14.8) % Plt Count (150-400) X10^3/uL Neut % (Auto) (50-75) % Lymph % (Auto) (25-40) % [place] % (Auto) (3-14) % Eos % (Auto) (2-4) % Baso % (Auto) (0-2) % Neut # (Auto) (6346-6339) /uL Lymph # (Auto) (5982-2147) /uL [place] # (Auto) (0-900) /uL Eos # (Auto) (0-450) /uL Baso # (Auto) (0-100) /uL PT (10.1-12.7) SECONDS INR (0.9-1.3) APTT (26.4-36.2) SECONDS Sodium (137-145) mmol/L Potassium (3.4-5.1) mmol/L Chloride (98-107) mmol/L Carbon Dioxide (22-32) mmol/L BUN (9-20) mg/dL Creatinine (0.66-1.25) mg/dL Estimated GFR (>60) mL/min BUN/Creatinine Ratio (6-22) Glucose (80-110) mg/dL Lactate 1.1 (0.7-2.1) mmol/L Calcium (8.4-10.2) mg/dL Total Bilirubin (0.2-1.3) mg/dL AST (17-59) IU/L ALT (21-72) IU/L Alkaline Phosphatase (38-126) U/L Total Protein (6.3-8.2) g/dL Albumin (3.5-5.0) g/dL Globulin (1.7-4.1) g/dL Albumin/Globulin Ratio (1.0-2.8) Lipase (23-300) U/L Urine RBC (0-5/HPF) Urine WBC (0-5/HPF) Ur Squamous Epith Cells (0-5/HPF) Urine Bacteria (None) Urine Mucus (Negative) Ur Culture Indicated? Point of care testing: Urine Dip Bedside Urine Glucose Negative Bedside Urine Bilirubin - Negative Bedside Urine Ketone ++ 40 Urine Specific [place] 1.015 Bedside Urine Occult Blood +/- Bedside Urine pH 7.5 Bedside Urine Protein +/- 15 Bedside Urine Urobilinogen +/- 1mg Bedside Urine Nitrite - Negative Bedside Urine Leukocytes +/- 15 Esterase Discharge Plan Departure Patient Disposition: Home Clinical Impression: Right inguinal pain Instructions: DI for Abdominal Pain-Adult, DI for Groin Strain Activity Restrictions/Additional Instructions: Your renal ultrasound abdominal CT and preliminary results of testicular ultrasound do not have any direct cause of your right lower quadrant pain. We are sending off a urine culture to see if your urine grows anything. He will get a phone call this comes back positive. I have given you a prescription of Toradol. Do not combine this with ibuprofen Aleve or any other NSAIDs. Please follow up with primary care provider soon as possible. Please come back to emergency department for any acute concerns such as chest pain or shortness of breath. Prescriptions: New ketorolac 10 mg tablet 10 mg PO Q6H PRN (Reason: pain) 2 Days Qty: 6 RF: 0 No Action atorvastatin 80 mg Tablet 80 mg PO BEDTIME RF: 0 atenolol 25 mg Tablet 25 mg PO DAILY RF: 0 clopidogrel 75 mg Tablet 75 mg PO DAILY RF: 0 aspirin 81 mg Tablet,Delayed Release (Dr/Ec) 81 mg PO DAILY RF: 0 isosorbide mononitrate 60 mg Tablet Extended Release 24 Hr 60 mg PO QAM RF: 0 nitroglycerin [Nitrostat] 0.4 mg Tablet, Sublingual 0.4 mg SUBLINGUAL Q5-15M PRN (Reason: Chest Pain) RF: 0 cholecalciferol (vitamin D3) [Vitamin D3] 1,000 unit Capsule 1,000 unit PO DAILY RF: 0 alfuzosin 10 mg Tablet Extended Release 24 Hr 10 mg PO QPM RF: 0 Referrals: Hector Watts MD [Non-Staff] - <Casey Poole DO - Last Filed: 03/31/19 22:56> Cosign ED Attending Cosignature Attestation: I was available for consultation during this patient's emergency department encounter
[2019-03-31 22:56] VITALS: BP 166/81; PULSE 56; RESP 15; O2SAT 96
== END 2019-03-31 22:56 | disposition home or self-care (01) ==
PROVIDERS: Emergency Medicine; Emergency Provider Nurse Practitioner Family
DX: R10.31 Right lower quadrant pain (principal)
CPT/HCPCS: 36415; 36591; 74176; 76770; 76870; 80053; 81003; 81015; 83605; 83690; 85025; 85610; 85730; 87086; 93005; 96374; 96375; 96376; 99283; 99284; J1885; J2270; J2405

== ENCOUNTER → 2021-11-01 11:48 | Outpatient (CLI) | payer OTHER, SELFPAY ==
[2021-11-01 13:44] LABS: COVID19 -Nasal RAPID Negative (Negative)
== END ==
PROVIDERS: Visit Provider Physician Assistant
DX: Z20.822 Contact with and (suspected) exposure to COVID-19 (principal)
CPT/HCPCS: 87635; C9803

== ENCOUNTER → 2021-11-02 09:37 | Outpatient (CLI) | payer OTHER, SELFPAY ==
--- NOTE | 2021-11-02 | DI.ECHO.S_ITS ---
[facility] +---------+ : : [address] : : : : [id number] : : : : Phone: [phone]+ Echocardiogram Report + + :Name: LAURI DAY Study Date: 11/02/2021 Height: 67 in : :[facility] ReadingLocation: Weight: 170 lb : : Gender: Male BSA: 1.9 m2 : :: 1945 Age: 76 yrs BP: 129/75 mmHg: :Reason For Study: ANGINA : :Ordering Physician: MAURA, : :ZAIRA Performed By: Lakeshia Stevenson : :Referring: ZAIRA LORENZO : + + Interpretation Summary Sinus bradycardia. Normal LV size and wall thickness. Basal inferolateral and distal septal hypokinesis. EF is 60-65%. Normal chamber sizes. No significant valvular abnormalities. No prior study available for comparison. Procedure: A two-dimensional transthoracic echocardiogram with color flow and Doppler was performed. The study quality was technically adequate. There is no prior echocardiogram noted for this patient. The patient was in sinus bradycardia with heart rates between 54-60 bpm during the exam. Left Ventricle: The left ventricle is normal in size and wall thickness. The ejection fraction is estimated to be 60-65%. Right Ventricle: The right ventricle is normal in size and function. Atria: The left atrial size is normal. Right atrial size is normal. There is no Doppler evidence for an interatrial shunt. Mitral Valve: The mitral valve is normal in structure and function. There is mild mitral regurgitation. Aortic Valve: The aortic valve is trileaflet. The aortic valve opens well. There is no aortic valve stenosis. No aortic regurgitation is present. Tricuspid Valve: The tricuspid valve is normal in structure and function. There is trace tricuspid regurgitation. Pulmonic Valve: The pulmonic valve leaflets are thin and pliable; valve motion is normal. There is trace pulmonic regurgitation. Great Vessels: The aortic root is normal size. The dimensions of the ascending aorta are normal. The IVC is of normal diameter and collapses greater than 50% with a sniff. This suggests a low right atrial pressure of 3 mm Hg. Pericardium/ Pleura There is no pericardial effusion. There is no pleural effusion. MMode/2D Measurements & Calculations LVIDd: 4.5 cm LVOT diam: 2.0 cm LVIDs: 2.8 cm Ao root diam: 3.1 cm FS: 37.9 % asc Aorta Diam: 3.3 cm IVSd: 0.80 cm Ao Arch Diam (Prox Trans): 2.9 cm LVPWd: 0.81 cm LV hemphill. diameter/BSA (cm/m^2): 2.4 LV sys. diameter/BSA (cm/m^2): 1.5 LA A2 area: 16.7 cm2 RA long axis: 5.3 cm LA A4 area: 15.9 cm2 RA area: 14.5 cm2 LA length (vol): 5.0 cm RA vol: 34.2 ml LA vol: 45.5 ml RA : 18.1 ml/m2 LA vol index: 24.1 ml/m2 IVC diam: 1.2 cm RVD1 (basal): 3.5 cm TAPSE: 1.9 cm Doppler Measurements & Calculations Ao V2 max: 101.6 cm/sec LVOT Max Luis: 98.3 cm/sec Ao V2 mean: 65.6 cm/sec LV V1 max P.9 mmHg Ao max P.1 mmHg LV V1 VTI: 19.6 cm Ao mean P.0 mmHg LYLE(I,D): 3.0 cm2 Ao V2 VTI: 21.5 cm LYLE(V,D): 3.1 cm2 sev ratio: 0.91 LYLE indexed to BSA (cm^2/m^2): 1.6 MV E max luis: 50.3 cm/sec TR max luis: 216.1 cm/sec MV A max luis: 73.1 cm/sec TR max P.7 mmHg MV E/A: 0.69 PA V2 max: 99.3 cm/sec Med Peak E' Luis: 6.0 cm/sec PA V2 mean: 75.3 cm/sec E/E' med: 8.3 PA mean P.5 mmHg Lat Peak E' Luis: 7.8 cm/sec PA pr(Accel): 20.8 mmHg E/E' lat: 6.4 E/e' average: 7.4 MV dec time: 0.29 sec SV(LVOT): 63.3 ml Electronically signed by: Zaira Lorenzo M.D. on Reading Physician:11/02/2021 08:10 PM
--- NOTE | 2021-11-02 18:57 | DI.NM.S_ITS ---
DATE OF SERVICE: PROCEDURE: Exercise perfusion study. INDICATION: Angina pectoris with remote history of bypass surgery, hypertension hyperlipidemia. RADIOPHARMACEUTICAL: 24.6 millicurie technetium-99m Myoview IV was injected at stress and 12.7 millicurie technetium-99m Myoview IV was injected at rest. CARDIAC STRESS: The patient underwent exercise perfusion study under the supervision of an attending staff. The patient walked on Bridger protocol for 7 minutes and 28 seconds, achieved 92 percent of target heart rate. Resting blood pressure 120/84 mmHg and peak blood pressure 200/90 mmHg. The patient achieved 10.1 METs of workload. Functional aerobic impairment -19 percent. The patient developed anginal discomfort, which was on a scale of 1 to 10, 2 in intensity in the second stage of exercise. It reached up to 4 in intensity at peak and resolved in 3 minutes into the recovery. Baseline rhythm was sinus with some nonspecific ST-T changes. During peak and early recovery, patient has 1.5 to [address] depression in leads V4 to V6, as well as inferior leads and lateral leads, which lasted more than 5 minutes in recovery. The patient has some PVCs without any ventricular tachycardia. RAW DATA: There appears to be adequate myocardial uptake. Increased subdiaphragmatic activity. GATED STUDY: Resting LV ejection fraction 71 percent and stress LV ejection fraction 67 percent without any obvious wall motion abnormalities. Resting end- diastolic volume 69 mL. TID ratio 1.30, which is abnormal. Lung/heart ratio 0.27, which is within normal limits. MYOCARDIAL PERFUSION SCAN: Stress supine, resting supine and stress prone images were compared to each other. There appears to be small size reversible ischemia of distal anterior wall. CONCLUSION: This is an abnormal myocardial perfusion study with a small reversible ischemia of distal anterior wall extending into the distal anterior septum. However, there is abnormal finding of transient ischemic dilatation. Transient ischemic dilatation ratio is 1.30. Abnormal transient ischemic dilatation is usually suggestive of left main or multivessel coronary artery disease. The patient had anginal discomfort during exercise and diffuse ischemic EKG changes which persisted more than 5 minutes in recovery. However, patient was able to walk on treadmill for about 7 minutes and 28 seconds using Bridger protocol. In view of electrocardiographic changes, typical symptoms, abnormal perfusion, as well as transient ischemic dilatation, consider left heart catheterization. Will let Dr. Jimenez know about this abnormal finding. Miller Yip: [id number] CARLO/ankush/azalea doc#: [id number]/job#: [id number] dd: 11/02/2021 17:03:00 dt: 11/02/2021 17:54:00 DICTATING MD/COPIES TO: Vu Boland MD; Corrine Jimenez MD COPIES MNE: JENN;
== END ==
PROVIDERS: Referring Provider Internal Medicine; Visit Provider Internal Medicine
DX: R94.39 Abnormal result of other cardiovascular function study (principal); I34.0 Nonrheumatic mitral (valve) insufficiency; I20.8 Other forms of angina pectoris; I10 Essential (primary) hypertension; E78.5 Hyperlipidemia, unspecified; Z95.1 Presence of aortocoronary bypass graft
CPT/HCPCS: 78452; 93017; 93306; A9502